=== PATIENT | male | born 1960 | race Caucasian/White ===

== ENCOUNTER → 2020-06-04 10:12 | Outpatient (CLI) | payer OTHER, SELFPAY ==
--- NOTE | 2020-06-04 10:30 | DI.RAD.S_ITS ---
PROCEDURE: XR CERVICAL SPINE 2V OR 3V INDICATIONS: Wrist pain/Neck pain TECHNIQUE: 3 view(s) of the cervical spine were acquired. COMPARISON: None. FINDINGS: Bones: No fractures or dislocations to the C7 level. The lateral masses of C1 appear intact on the odontoid view. No suspicious bony lesions. Straightening of cervical lordosis which may be due to patient positioning and/or concurrent muscle spasms. Multilevel cervical spondylosis most pronounced at C5-6 and C6-7. Soft tissues: No prevertebral soft tissue swelling. Surgical screw projects over the left side of the T1 vertebral body chest inferior to the pedicle. This is only seen on the AP view. IMPRESSION: Cervical spine without acute fracture or dislocation. Mild straightening of normal cervical lordosis likely related to positioning and/or concurrent muscle spasms. Multilevel cervical spondylosis most pronounced from C5-6 through C6-7. Dictated by: Smith Baeza M.D. on 06/04/2020 at 14:29 Approved by: Smith Baeza M.D. on 06/04/2020 at 14:31
--- NOTE | 2020-06-04 10:30 | DI.RAD.S_ITS ---
PROCEDURE: XR WRIST LT MIN 3V INDICATIONS: Wrist pain/Neck pain TECHNIQUE: 4 views of the wrist were acquired. COMPARISON: None. FINDINGS: Bones: No acute fractures or dislocations. There are degenerative changes of the triscaphe joint and 1st carpometacarpal joint. No suspicious osseous erosions. No suspicious bony lesions. Scaphoid view: Scaphoid appears intact. Scapholunate interval is maintained. Soft tissues: No suspicious soft tissue calcifications. IMPRESSION: 1. Left wrist without acute fracture or dislocation. 2. Degenerative changes of the left wrist involving the triscaphe and 1st carpometacarpal joints. Dictated by: Smith Baeza M.D. on 06/04/2020 at 14:32 Approved by: Smith Baeza M.D. on 06/04/2020 at 14:36
== END ==
PROVIDERS: PCP Physician Assistant
DX: M54.2 Cervicalgia (principal); M47.812 Spondylosis without myelopathy or radiculopathy, cervical region; M25.532 Pain in left wrist
CPT/HCPCS: 72040; 73110